=== PATIENT | male | born 1965 | race Caucasian/White ===

== ENCOUNTER 2020-08-20 08:41 | Observation (INO) | payer OTHER ==
[2020-08-20] MEDS ORDERED: SODIUM CHLORIDE 0.9% 1,000 ML IV STA (08:52)
--- NOTE | 2020-08-20 09:10 | ED ---
General Adult HPI - General Chief complaint: Syncope Stated complaint: syncope Time Seen by Provider: 08/20/20 08:43 Source: patient, EMS, RN notes reviewed Mode of arrival: EMS Limitations: no limitations - History of Present Illness Initial comments: This is a 55-year-old male presents emergency department via EMS with chief complaint of syncopal episode. Patient states that he was getting out of the vehicle yesterday and states that he passed out striking the right side of his head. Patient does complain of mild headache no blood thinners. Patient denies any focal weakness. No blurred vision. Patient states that he was making coffee table to walk to the bathroom and felt that using a pass out again. Patient states he is able to lower himself to the ground before he fell. Patient states she's never had any like this in the past. Denies any prior cardiac disease. Denies any abdominal complaints including nausea vomiting diarrhea. No fevers or chills any leg pain, leg swelling or leg cramping. - Related Data Home Medications Medication Instructions Recorded Confirmed No Known Home Medications 08/20/20 08/20/20 Allergies Allergy/AdvReac Type Severity Reaction Status Date / Time No Known Allergies Allergy Verified 08/20/20 10:03 Review of Systems ROS Statement: Those systems with pertinent positive or pertinent negative responses have been documented in the HPI. ROS Other: All systems not noted in ROS Statement are negative. Past Medical History Past Medical History: No Reported History History of Any Multi-Drug Resistant Organisms: None Reported Past Surgical History: Appendectomy Past Psychological History: No Psychological Hx Reported Smoking Status: Current every day smoker Past Alcohol Use History: Occasional Past Drug Use History: None Reported General Exam Limitations: no limitations General appearance: alert, in no apparent distress Head exam: Present: atraumatic, normocephalic, normal inspection Eye exam: Present: normal appearance, PERRL, EOMI. Absent: scleral icterus, conjunctival injection, periorbital swelling ENT exam: Present: normal exam, normal oropharynx, mucous membranes moist, TM's normal bilaterally Neck exam: Present: normal inspection, full ROM. Absent: tenderness, meningismus, lymphadenopathy Respiratory exam: Present: normal lung sounds bilaterally. Absent: respiratory distress, wheezes, rales, rhonchi, stridor Cardiovascular Exam: Present: regular rate, normal rhythm, normal heart sounds. Absent: systolic murmur, diastolic murmur, rubs, gallop, clicks Extremities exam: Present: normal inspection, full ROM, normal capillary refill. Absent: tenderness, pedal edema, joint swelling, calf tenderness Neurological exam: Present: alert, oriented X3, CN II-XII intact, reflexes n ormal. Absent: motor sensory deficit Skin exam: Present: warm, dry, intact, normal color. Absent: rash Course Vital Signs 08/20/20 08/20/20 08/20/20 08:46 09:00 09:02 Temperature 97.8 F Pulse Rate 93 Pulse Rate [ 93 95 Human Resources Benefits Manager ] Respiratory 18 18 18 Rate Blood Pressure 149/96 Blood Pressure 132/100 [Left Arm Sitting] Blood Pressure [Left Arm Standing] Blood Pressure 149/96 [Left Arm Supine] O2 Sat by Pulse 98 98 97 Oximetry 08/20/20 08/20/20 09:05 09:30 Temperature Pulse Rate 97 Pulse Rate [ 80 Human Resources Benefits Manager ] Respiratory 18 18 Rate Blood Pressure 102/77 Blood Pressure [Left Arm Sitting] Blood Pressure 132/97 [Left Arm Standing] Blood Pressure [Left Arm Supine] O2 Sat by Pulse 98 99 Oximetry - Reevaluation(s) Reevaluation #1: 08/20/20 10:28 Is: The room secondary to patient having urticaria. Patient did have diffuse ur ticaria was normal straight distress patient was given site Medrol Benadryl and Pepcid symptoms improved EKG Findings - EKG Comments: EKG Findings:: EKG performed at 9:02 normal sinus rhythm right bundle noted, rate of 75 AR 162 QRS 142 QT/QTC 414/462 - EKG Results: EKG: interpreted by MINDI Medical Decision Making - Medical Decision Making 55-year-old male presented for syncopal episode. Patient had multiple episodes of syncope, near syncope with diaphoresis. Patient will be admitted for cardiology evaluation. - Lab Data Result diagrams: 08/20/20 08:59 08/20/20 08:59 Lab Results 08/20/20 08/20/20 08/20/20 Range/Units 08:59 08:59 08:59 WBC 11.0 H (3.8-10.6) k/uL RBC 4.70 (4.30-5.90) m/uL Hgb 15.6 (13.0-17.5) gm/dL Hct 46.3 (39.0-53.0) % MCV 98.5 (80.0-100.0) fL MCH 33.2 (25.0-35.0) pg MCHC 33.7 (31.0-37.0) g/dL RDW 12.9 (11.5-15.5) % Plt Count 269 (150-450) k/uL MPV 7.5 Neutrophils % 91 % Lymphocytes % 6 % Monocytes % 2 % Eosinophils % 1 % Basophils % 0 % Neutrophils # 9.9 H (1.3-7.7) k/uL Lymphocytes # 0.7 L (1.0-4.8) k/uL Monocytes # 0.2 (0-1.0) k/uL Eosinophils # 0.1 (0-0.7) k/uL Basophils # 0.0 (0-0.2) k/uL PT 10.1 (9.0-12.0) sec INR 0.9 (<1.2) APTT 22.1 (22.0-30.0) sec Sodium 138 (137-145) mmol/L Potassium 4.4 (3.5-5.1) mmol/L Chloride 106 (98-107) mmol/L Carbon Dioxide 22 (22-30) mmol/L Anion Gap 10 mmol/L BUN 8 L (9-20) mg/dL Creatinine 0.78 (0.66-1.25) mg/dL Est GFR (CKD-EPI)AfAm >90 (>60 ml/min/1.73 sqM) Est GFR (CKD-EPI)NonAf >90 (>60 ml/min/1.73 sqM) Glucose 111 H (74-99) mg/dL Calcium 8.7 (8.4-10.2) mg/dL Magnesium 2.0 (1.6-2.3) mg/dL Total Bilirubin 0.9 (0.2-1.3) mg/dL AST 30 (17-59) U/L ALT 17 (4-49) U/L Alkaline Phosphatase 61 (38-126) U/L Troponin I (0.000-0.034) ng/mL Total Protein 7.5 (6.3-8.2) g/dL Albumin 4.3 (3.5-5.0) g/dL 08/20/20 Range/Units 08:59 WBC (3.8-10.6) k/uL RBC (4.30-5.90) m/uL Hgb (13.0-17.5) gm/dL Hct (39.0-53.0) % MCV (80.0-100.0) fL MCH (25.0-35.0) pg MCHC (31.0-37.0) g/dL RDW (11.5-15.5) % Plt Count (150-450) k/uL MPV Neutrophils % % Lymphocytes % % Monocytes % % Eosinophils % % Basophils % % Neutrophils # (1.3-7.7) k/uL Lymphocytes # (1.0-4.8) k/uL Monocytes # (0-1.0) k/uL Eosinophils # (0-0.7) k/uL Basophils # (0-0.2) k/uL PT (9.0-12.0) sec INR (<1.2) APTT (22.0-30.0) sec Sodium (137-145) mmol/L Potassium (3.5-5.1) mmol/L Chloride (98-107) mmol/L Carbon Dioxide (22-30) mmol/L Anion Gap mmol/L BUN (9-20) mg/dL Creatinine (0.66-1.25) mg/dL Est GFR (CKD-EPI)AfAm (>60 ml/min/1.73 sqM) Est GFR (CKD-EPI)NonAf (>60 ml/min/1.73 sqM) Glucose (74-99) mg/dL Calcium (8.4-10.2) mg/dL Magnesium (1.6-2.3) mg/dL Total Bilirubin (0.2-1.3) mg/dL AST (17-59) U/L ALT (4-49) U/L Alkaline Phosphatase (38-126) U/L Troponin I <0.012 (0.000-0.034) ng/mL Total Protein (6.3-8.2) g/dL Albumin (3.5-5.0) g/dL Disposition Clinical Impression: Syncopal episodes, Allergic reaction Disposition: ADMITTED IP TO THIS HOSP Condition: Fair Referrals: Karla Fajardo MD [Primary Care Provider] - 1-2 days
[2020-08-20 09:11] LABS: Basophils % (A) 0 %; Eosinophils # (A) 0.1 k/uL (0-0.7); Eosinophils % (A) 1 %; HCT 46.3 % (39.0-53.0); HGB 15.6 gm/dL (13.0-17.5); Lymphocytes # (A) 0.7 k/uL (1.0-4.8); Lymphocytes % (A) 6 %; MCH 33.2 pg (25.0-35.0); MCHC 33.7 g/dL (31.0-37.0); MCV 98.5 fL (80.0-100.0); Mean Platelet Volume 7.5; Monocytes # (A) 0.2 k/uL (0-1.0); Monocytes % (A) 2 %; Neutrophils # (A) 9.9 k/uL (1.3-7.7); Neutrophils % (A) 91 %; Platelet Count 269 k/uL (150-450); RDW 12.9 % (11.5-15.5)
[2020-08-20 09:20] LABS: ALT 17 U/L (4-49); AST 30 U/L (17-59); African American GFR (CKD) >90 (>60 ml/min/1.73 sqM); Albumin 4.3 g/dL (3.5-5.0); Alkaline Phosphatase 61 U/L (38-126); Anion Gap 10 mmol/L; Blood Urea Nitrogen 8 mg/dL (9-20); Calcium 8.7 mg/dL (8.4-10.2); Carbon Dioxide 22 mmol/L (22-30); Chloride 106 mmol/L (98-107); Glucose 111 mg/dL (74-99); Non-African American GFR(CKD) >90 (>60 ml/min/1.73 sqM); Potassium 4.4 mmol/L (3.5-5.1); Sodium 138 mmol/L (137-145); Total Bilirubin 0.9 mg/dL (0.2-1.3); Total Protein 7.5 g/dL (6.3-8.2)
[2020-08-20 09:22] LABS: INR 0.9 (<1.2); Partial Thromboplastin Time 22.1 sec (22.0-30.0); Prothrombin Time 10.1 sec (9.0-12.0)
--- NOTE | 2020-08-20 09:23 | XR ---
EXAMINATION TYPE: XR chest 2V DATE OF EXAM: 08/20/2020 COMPARISON: NONE HISTORY: Syncope and weakness. TECHNIQUE: Frontal and lateral views of the chest are obtained. FINDINGS: There is chronic parenchymal changes without suspicious focal air space opacity, pleural e ffusion, or pneumothorax seen. The cardiac silhouette size is within normal limits. The osseous st ructures are intact. Overlying EKG leads. IMPRESSION: No acute cardiopulmonary process.
--- NOTE | 2020-08-20 09:27 | CT ---
EXAMINATION TYPE: CT brain rita rogers con DATE OF EXAM: 08/20/2020 COMPARISON: NONE HISTORY: syncopal episodes with Right sided orbital injury, headache and neck pain. CT DLP: 1408.2 mGycm. Automated Exposure Control for Dose Reduction was Utilized. TECHNIQUE: CT scan of the head and cervical spine are performed without contrast. FINDINGS: There is no acute intracranial hemorrhage or midline shift identified. Mild ventricular and sulcal prominence. Auguste-white matter differentiation maintained. The calvarium is intact. Mild to mo derate mucosal thickening right greater than left inferior maxillary sinuses. Moderate patchy opacifi cation of ethmoid sinuses bilaterally. Globes are intact bilaterally. Soft tissue density consistent with cerumen though present in bilateral external auditory canals right greater than left. Cervical spine is visualized in its entirety from C1 through upper thoracic levels and demonstrates l evoconvex scoliotic curvature centered upper thoracic spine without evidence of acute fracture or dis location. Prevertebral soft tissue appears within normal limits. The C1-C2 articulation is within n ormal limits on the coronal images. Vertebral body heights and disc space heights are maintained. Mi [id number] calcified plaque bilateral carotid bulb level left greater than right. Lung apices miryam w no pneumothorax. Thyroid gland within normal limits. Spinal canal preserved. IMPRESSION: 1. There is no acute fracture or dislocation evident in the cervical spine. 2. No acute intracranial hemorrhage or midline shift is seen.
--- NOTE | 2020-08-20 09:30 | XR ---
EXAMINATION TYPE: XR hand complete LT DATE OF EXAM: 08/20/2020 CLINICAL HISTORY: Pain. TECHNIQUE: Frontal, lateral and oblique images of the left hand are obtained. COMPARISON: None. FINDINGS: There is no acute fracture/dislocation evident in the left hand. Mild narrowing scattered throughout the PIP and DIP joints of the phalanges. Relative sparing of the MCP joints. No significa nt spurring. The overlying soft tissue appears unremarkable. IMPRESSION: As above.
[2020-08-20] MEDS ORDERED: methylPREDNISolone SOD SUCCI 125 MG/2 ML VIAL IV STA (09:35)
[2020-08-20] MEDS ORDERED: diphenhydrAMINE 50 MG/ML 1 ML VIAL IVP STA (09:35)
[2020-08-20] MEDS ORDERED: FAMOTIDINE 20 MG/2 ML VIAL IV STA (09:35)
[2020-08-20] MEDS ORDERED: NALOXONE 0.4 MG/ML 1 ML VIAL IV PRN (10:30)
[2020-08-20] MEDS ORDERED: ACETAMINOPHEN TAB 325 MG TAB PO PRN (10:30)
[2020-08-20] MEDS ORDERED: NICOTINE 21MG/24HR PATCH TRANSDERM STA (10:37)
[2020-08-20] MEDS ORDERED: LORazepam 2 MG/ML INJ IV PRN ×3 (10:37)
[2020-08-20] MEDS: SODIUM CHLORIDE 0.9% 1,000 ML IV SCH (10:48)
[2020-08-20 11:05] LABS: Appearance,Urine Clear (Clear); Bacteria,Urine Rare /hpf; Bilirubin,Urine Negative (Negative); Blood,Urine Negative (Negative); Color,Urine Yellow; Glucose,Urine (UA) Trace (Negative); Hyaline Casts,Urine 81 /lpf (0-2); Ketones,Urine Negative (Negative); Leukocyte Esterase,Urine Negative (Negative); Mucus,Urine Few /hpf; Nitrite,Urine Negative (Negative); Protein,Urine 2+ (Negative); RBC,Urine 1 /hpf (0-5); Specific Gravity,Urine 1.014 (1.001-1.035); Squamous Epithelial Cell,Urine <1 /hpf (0-4); Urobilinogen,Urine <2.0 mg/dL (<2.0); WBC,Urine 6 /hpf (0-5)
--- NOTE | 2020-08-20 15:50 | P.HPIM ---
History of Present Illness H&P Date: 08/20/20 Felix Cook, is a 55-year-old male who presented to [facility] emergency room with a chief complaint of 2 syncopal episodes patient states that yesterday he was coming home with his son when he passed out on the driveway and fell to the ground and hit the right side of his head, his son went into the house and then came back out to look for him and found him laying on the floor unconscious, patient stated that home he woke up this morning and had coffee subsequence the he felt very faint and was able to lower himself to the floor and he passed out again at that point his called EMS and patient was brought into emergency room. Patient was evaluated in the emergency room his vital exam on presentation revealed a temperature of 97.8 pulse 93 respiration 18 blood pressure 149/96 pulse ox 98% on room air, his white blood count was 11.0 hemoglobin 15.6 platelet count 269 coronary virus PCR was negative. EKG done in the emergency room revealed normal sinus rhythm with right bundle branch block chest x-ray did not reveal any acute cardiopulmonary process computed tomography scan of the brain and the cervical spine was done in the emergency room and did not reveal a ny evidence of acute abnormality left hand x-ray did not reveal any abnormality. Patient was admitted to medical floor with telemetry for further evaluation and treatment. Patient denies any significant past medical history he denies any history of cardiac disease or any history of seizures, he is not on any home medications, he states that he drinks up to 12 beers per day he smokes one to one and a half packs of cigarettes per day. Past Medical History Past Medical History: No Reported History Additional Past Medical History / Comment(s): Pt states he drinks daily/8-12 beers a day and has had episodes of "sweats" when he was not drinking. History of Any Multi-Drug Resistant Organisms: None Reported Past Surgical History: Appendectomy Additional Past Surgical History / Comment(s): Colonoscopy Past Anesthesia/Blood Transfusion Reactions: No Reported Reaction Smoking Status: Current every day smoker - Past Family History Father Family Medical History: Cancer, Dementia, Myocardial Infarction ([place]), Vascular Disorder Additional Family Medical History / Comment(s): aortic aneurysm repair, [place] at age 72 yrs, bladder cancer. Mother Family Medical History: Cancer Additional Family Medical History / Comment(s): Lung cancer Medications and Allergies Home Medications Medication Instructions Recorded Confirmed Type No Known Home Medications 08/20/20 08/20/20 History Allergies Allergy/AdvReac Type Severity Reaction Status Date / Time No Known Allergies Allergy Verified 08/20/20 10:03 Physical Exam Vitals: Vital Signs Temp Pulse Pulse Resp BP BP BP 08/20/20 10:29 92 18 131/92 08/20/20 09:30 97 18 102/77 08/20/20 09:05 80 18 132/97 08/20/20 09:02 95 18 132/100 08/20/20 09:00 93 18 08/20/20 08:46 97.8 F 93 18 149/96 BP Pulse Ox 08/20/20 10:29 100 08/20/20 09:30 99 08/20/20 09:05 98 08/20/20 09:02 97 08/20/20 09:00 149/96 98 08/20/20 08:46 98 Intake and Output 08/19/20 08/20/20 08/20/20 22:59 06:59 14:59 Other: Weight 72.575 kg In general patient is alert and oriented 3 in no apparent distress HEENT head normocephalic bed is hematoma around the right eye Neck is supple no JVD no goiter no lymphadenopathy no carotid bruit Chest is clear to auscultation no crackles no wheezing Cardiac exam reveals regular heart sounds S1 and S2 no gallops no murmurs Abdomen is soft nontender no organomegaly with normal bowel sounds Extremity exam reveals no edema no cyanosis or clubbing Neurological examination reveals no gross focal deficit Results CBC & Chem 7: 08/20/20 08:59 08/20/20 08:59 Labs: Abnormal Lab Results - Last 24 Hours (Table) 08/20/20 08/20/20 08/20/20 Range/Units 08:59 08:59 08:59 WBC 11.0 H (3.8-10.6) k/uL Neutrophils # 9.9 H (1.3-7.7) k/uL Lymphocytes # 0.7 L (1.0-4.8) k/uL BUN 8 L (9-20) mg/dL Glucose 111 H (74-99) mg/dL Urine Protein 2+ H (Negative) Urine Glucose (UA) Trace H (Negative) Urine WBC 6 H (0-5) /hpf Urine Bacteria Rare H (None) /hpf Hyaline Casts 81 H (0-2) /lpf Urine Mucus Few H (None) /hpf Thrombosis Risk Factor Assmnt - Choose All That Apply Any of the Below Risk Factors Present?: Yes Each Factor Represents 1 point: Age 41-60 years Other Risk Factors: No Other congenital or acquired thrombophilia - If yes, enter type in comment: No Thrombosis Risk Factor Assessment Total Risk Factor Score: 1 Thrombosis Risk Factor Assessment Level: Low Risk Assessment and Plan Plan: 1. 2 syncopal episodes in the last 24 hours, will check echocardiogram and carotid Doppler, will monitor on telemetry to rule out any cardiac arrhythmia, cardiology consultation and neurology consultation are requested 2. Excessive alcohol use with early alcohol was drawn started on Ativan and thiamine 3. Underlying history of tobacco use Will monitor during this admission Patient was counseled in regard to smoking cessation and decreasing alcohol intake Recheck labs and follow-up in a.m.
--- NOTE | 2020-08-20 16:22 | US ---
EXAMINATION TYPE: US carotid duplex BILAT DATE OF EXAM: 08/20/2020 COMPARISON: NONE CLINICAL HISTORY: syncope. EXAM MEASUREMENTS: RIGHT: Peak Systolic Velocity (PSV) cm/sec ----- Right CCA: 98.7 ----- Right ICA: 72.6 ----- Right ECA: 96.9 ICA/CCA ratio: 0.7 RIGHT: End Diastole cm/sec ----- Right CCA: 21.7 ----- Right ICA: 10.0 ----- Right ECA: 14.1 LEFT: Peak Systolic Velocity (PSV) cm/sec ----- Left CCA: 98.4 ----- Left ICA: 82.7 ----- Left ECA: 145.7 ICA/CCA ratio: 0.8 LEFT: End Diastole cm/sec ----- Left CCA: 17.6 ----- Left ICA: 25.8 ----- Left ECA: 13.6 VERTEBRALS (direction of flow): Right Vertebral: Antegrade Left Vertebral: Antegrade Rhythm: Normal No significant stenosis seen. Elevated left ECA. . Auguste scale images show mild to moderate peripheral hyperechoic plaque in carotid bulb level bilateral ly greater at the left carotid bulb. Velocity measurements and ratios remain within normal limits in both internal carotid arteries. IMPRESSION: Moderate atherosclerotic change left greater than right without hemodynamically signific ant stenosis involving either internal carotid artery . Criteria for Assigning % of Stenosis / Diameter reduction (Estimation based on the indirect measurements of the internal carotid artery velocities (ICA PSV). 1. Normal (no stenosis)=ICA PSV < 125 cm/s: ratio < 2.0: ICA EDV<40 cm/s. 2. Less than 50% stenosis=ICA PSV < 125 cm/s: ratio < 2.0: ICA EDV<40 cm/s. 3. 50 to 69% stenosis=ICA PSV of 125 to 230 cm/s: ration 2.0 ? 4.0: ICA EDV 40-100 cm/s. 4. Greater than 70% stenosis to near occlusion= ICA PSV > 230 cm/s: ratio > 4.0: ICA EDV > 100 cm/s. 5. Near occlusion= ICA PSV velocities may be low or undetectable: variable ratio and ICA EDV. 6. Total occlusion=unable to detect flow.
[2020-08-20] MEDS: THIAMINE 100 MG TAB PO SCH (20:45)
[2020-08-21] MEDS: SODIUM CHLORIDE 0.9% 1,000 ML IV SCH ×2 (01:19→13:50)
[2020-08-21] MEDS: THIAMINE 100 MG TAB PO SCH ×2 (07:11→15:16)
[2020-08-21] MEDS: amLODIPine 5 MG TAB PO SCH (09:28)
[2020-08-21 10:21] LABS: Basophils # (A) 0.02 X 10*3/uL (0.00-0.10); Basophils % (A) 0.3 %; Eosinophils # (A) 0.04 X 10*3/uL (0.04-0.35); Eosinophils % (A) 0.5 %; HCT 40.5 % (39.6-50.0); HGB 13.7 g/dL (13.0-17.0); Lymphocytes # (A) 1.81 X 10*3/uL (0.90-5.00); Lymphocytes % (A) 23.5 %; MCH 33.4 pg (27.0-32.0); MCHC 33.8 g/dL (32.0-37.0); MCV 98.8 fL (80.0-97.0); Mean Platelet Volume 10.9 fL (9.5-12.2); Monocytes # (A) 0.86 X 10*3/uL (0.20-1.00); Monocytes % (A) 11.2 %; Neutrophils # (A) 4.93 X 10*3/uL (1.80-7.70); Neutrophils % (A) 64.1 %; Platelet Count 243 X 10*3/uL (140-440); RDW 13.1 % (11.5-14.5); WBC 7.69 X 10*3/uL (4.50-10.00)
[2020-08-21 10:33] LABS: African American GFR (CKD) 124.9 (60.0-200.0); Albumin 4.2 g/dL (3.80-4.90); Anion Gap 4.7 mmol/L (4.00-12.00); BUN/Creat Ratio 15.71 Ratio (12.00-20.00); Calcium 8.5 mg/dL (8.7-10.3); Carbon Dioxide 26.3 mmol/L (21.6-31.8); Globulin 2.1 g/dL (1.6-3.3); Non-African American GFR(CKD) 107.7 (60.0-200.0); Potassium 3.9 mmol/L (3.5-5.5); Total Bilirubin 1.1 mg/dL (0.3-1.2); Total Protein 6.3 g/dL (6.2-8.2)
--- NOTE | 2020-08-21 10:54 | P.CRDCN ---
History of Present Illness Consult date: 08/21/20 History of present illness: CHIEF COMPLAINT: Syncope HISTORY OF PRESENT ILLNESS: This is a 55-year-old male with a past medical history significant for daily alcohol use and nicotine dependence. Patient does not follow with a skin specialist. We have been asked to see the patient in consultation for syncope. Patient examined this morning at bedside. Patient states that 2 days ago he was bowling and felt in his usual state of health. He drove home and after he pulled into the driveway he got out of the car and apparently passed out in the driveway. He was found by his children. Patient states he does not know how long he was down for. Patient states he felt okay for the rest of the day. He states his morning he woke up and made coffee and then went to the bathroom and afterwards felt like he was about to pass out. He states he lowered himself to the ground and believes he passed out at that point. Patient denied any chest pain or pressure. Denies shortness of breath. Denies dizziness or lightheadedness. Denies nausea or vomiting. DIAGNOSTICS: EKG reveals sinus mechanism with right bundle branch block Chest xray no acute cardiopulmonary process Laboratory data: WBC 7.9. Hemoglobin 13.7. Platelet count 243. Sodium 137. Potassium 3.9. BUN 11. Creatinine 0.7. Magnesium 2.0. Troponin negative 1. Current home cardiac medications include none REVIEW OF SYSTEMS: At the time of my exam: CONSTITUTIONAL: Denies fever or chills. HEENT: Denies blurred vision, vision changes, or eye pain. Denies hemoptysis CARDIOVASCULAR: Denies chest pain, orthopnea, PND or palpitations RESPIRATORY: No shortness of breath. GASTROINTESTINAL: Denies abdominal pain. Denies nausea or vomiting. HEMATOLOGIC: Denies bleeding disorders. GENITOURINARY: Denies any blood in urine. SKIN: Denies pruitis. Denies rash. PHYSICAL EXAM: VITAL SIGNS: Reviewed. GENERAL: Well-developed in no acute distress. HEENT: Head is normocephalic. Patient with ecchymosis to right orbital region. Pupils are equal, round. Sclerae anicteric. Mucous membranes of the mouth are moist. Neck supple. No JVD or thyromegaly LUNGS: Respirations even and unlabored. Lungs essentially clear to auscultation bilaterally. HEART: Regular rate and rhythm. S1 and S2 heard. ABDOMEN: Soft. Nondistended. Nontender. EXTREMITIES: Normal range of motion. No clubbing or cyanosis. Peripheral pulses intact. No lower extremity edema NEUROLOGIC: Awake and alert. Oriented x 3. ASSESSMENT: Syncope, of unclear etiology Hypertension Alcohol abuse, patient drinks 8-12 beers daily Nicotine dependence, patient smokes 1.5 packs per day PLAN: Smoking cessation encouraged Alcohol abstinence recommended Nephrology has been consulted for evaluation. Await recommendations Orthostatic blood pressures obtained and reviewed Obtain lipid panel Obtain 2-D echo to assess cardiac structure and function Continue telemetry monitoring for any arrhythmias Begin Norvasc 5 mg daily. Monitor blood pressure Further recommendations pending patient's course Nurse practitioner note has been reviewed by physician. Signing provider agrees with the documented findings, assessment, and plan of care. Past Medical History Past Medical History: No Reported History Additional Past Medical History / Comment(s): Pt states he drinks daily/8-12 beers a day and has had episodes of "sweats" when he was not drinking. History of Any Multi-Drug Resistant Organisms: None Reported Past Surgical History: Appendectomy Additional Past Surgical History / Comment(s): Colonoscopy Past Anesthesia/Blood Transfusion Reactions: No Reported Reaction Smoking Status: Current every day smoker - Past Family History Father Family Medical History: Cancer, Dementia, Myocardial Infarction ([place]), Vascular Disorder Additional Family Medical History / Comment(s): aortic aneurysm repair, [place] at age 72 yrs, bladder cancer. Mother Family Medical History: Cancer Additional Family Medical History / Comment(s): Lung cancer Medications and Allergies Home Medications Medication Instructions Recorded Confirmed Type No Known Home Medications 08/20/20 08/20/20 History Allergies Allergy/AdvReac Type Severity Reaction Status Date / Time No Known Allergies Allergy Verified 08/20/20 10:03 Physical Exam Vitals: Vital Signs Temp Pulse Pulse Pulse Resp BP BP 08/21/20 07:13 98.1 F 78 16 169/86 08/21/20 01:50 98.2 F 68 72 67 17 157/86 176/91 08/20/20 19:30 16 08/20/20 19:20 98.5 F 83 83 16 142/80 08/20/20 14:00 97.1 F L 83 106 H 83 18 173/92 141/96 BP Pulse Ox 08/21/20 07:13 100 02/06/21 01:50 154/82 97 08/20/20 19:30 08/20/20 19:20 08/20/20 14:00 161/79 Intake and Output 08/20/20 08/21/20 08/21/20 22:59 06:59 14:59 Intake Total 960 Balance 960 Intake: Oral 960 Other: # Voids 1 1 Results 08/21/20 05:19 08/21/20 05:19 Cardiac Enzymes 08/21/20 Range/Units 05:19 AST 22 (14-35) U/L CBC 08/21/20 Range/Units 05:19 WBC 7.69 (4.50-10.00) X 10*3/uL RBC 4.10 L (4.40-5.60) X 10*6/uL Hgb 13.7 (13.0-17.0) g/dL Hct 40.5 (39.6-50.0) % Plt Count 243 (140-440) X 10*3/uL Comprehensive Metabolic Panel 08/21/20 Range/Units 05:19 Sodium 137 (135-145) mmol/L Potassium 3.9 (3.5-5.5) mmol/L Chloride 106 (96-109) mmol/L Carbon Dioxide 26.3 (21.6-31.8) mmol/L BUN 11.0 (9.0-27.0) mg/dL Creatinine 0.7 (0.6-1.5) mg/dL Glucose 103 (70-110) mg/dL Calcium 8.5 L (8.7-10.3) mg/dL AST 22 (14-35) U/L ALT 13 (10-49) U/L Alkaline Phosphatase 50 (41-126) U/L Total Protein 6.3 (6.2-8.2) g/dL Albumin 4.20 (3.80-4.90) g/dL Current Medications Generic Name Dose Route Start Last Admin Trade Name Freq PRN Reason Stop Dose Admin Acetaminophen 650 mg 08/20/20 10:30 Acetaminophen Tab 325 Mg Tab PO Q6HR PRN Mild Pain or Fever > 100.5 Amlodipine Besylate 5 mg 08/21/20 09:30 08/21/20 09:28 Amlodipine 5 Mg Tab PO 5 mg DAILY FUNMILAYO Administration Sodium Chloride 1,000 mls @ 75 mls/hr 08/20/20 10:30 08/21/20 01:19 Saline 0.9% IV 75 mls/hr .[id number] FUNMILAYO Administration Lorazepam 1 mg 08/20/20 10:37 Lorazepam 2 Mg/Ml Inj IV Q2HR PRN CIWA 8 or 9 Lorazepam 1 mg 08/20/20 10:37 Lorazepam 2 Mg/Ml Inj IV Q1HR PRN CIWA 10 to 15 Lorazepam 2 mg 08/20/20 10:37 Lorazepam 2 Mg/Ml Inj IV 08/22/20 10:37 Q10M PRN CIWA 16 or higher Naloxone HCl 0.2 mg 08/20/20 10:30 Naloxone 0.4 Mg/Ml 1 Ml Vial IV Q2M PRN Opioid Reversal Thiamine HCl 100 mg 08/20/20 17:30 08/21/20 07:11 Thiamine 100 Mg Tab PO 100 mg BID-W/MEALS FUNMILAYO Administration Intake and Output 08/20/20 08/21/20 08/21/20 22:59 06:59 14:59 Intake Total 960 Balance 960 Intake: Oral 960 Other: # Voids 1 1 08/21/20 05:19 08/21/20 05:19
--- NOTE | 2020-08-21 13:21 | P.CNNES ---
History of Present Illness Consult date: 08/21/20 Requesting physician: Samia Dorman Reason for Consult: episode of unresponsiveness History of Present Illness: This is a 55-year-old gentleman with medical history of daily alcohol use, nicotine dependence that presented to the emergency department on 08/20/2020 for syncopal episode. Patient stated about 2 days ago ( night) he was bowling at night and was feeling his usual self he drove home and then after he pulled in the driveway he got out of the car and apparently passed out in the driveway. He was found by his children and unknow duration of him being passed out for. He said that that he was notified by family members that he didn't have any jerking of the extremities. He said after the first episode he had some loose over the around the right eye. Patient denied of any tongue bites, urinary bowel incontinence. Patient denied of any auras prior to the episode. Denied of any chest pain, feeling dizzy or lightheaded headedness. He denied any visual disturbance prior to episode of feeling sweaty. He said that he's been drinking the same amounts and has not been going down on his alcohol use or at has not been going up. Denies of any fevers recently. Denies being on any medications. Then the next day which is Sunday morning patient stated that he woke up 6:30am, made his coffeee then he went to the bathroom and afterwards he felt like he was about to pass out. Upon asking him to further describe what was his feelings at that time he said she just felt off but denies feeling dizzy denies any neurological symptoms or visual disturbance. He denies feel having any chest pain. He is unsure if he felt lightheaded or not. But he's denied B going from a sitting to standing position and feeling lightheaded or dizzy. Then he stepped out of the bathroom and just the one on the floor but denies passing out but is not exactly sure. Again no urinary, bowel incontinence denies any jerking of the extremities that were was witnessed by the family. EMS was called as a result by his according to the patient. Patient drinks 8-12 beers daily and he smokes 1 1/2 PPD. And as stated above. Intravenous M same amounts every day he says sometimes he gets aching drinks 6 beers or up to 12 but at has not changed anything 20 for years as well as ease been smoking for years according to the patient. Patient denies any history of seizures in the past. Denies any family history of seizures. history he said he was a product of normal gestation vaginal and there is no complication. Workup in the hospital consisted of: Initial vital signs: Blood pressure of 149/96, heart rate of 93, temperature of 97.8 Fahrenheit oral, respiratory of 18 and pulse ox of 98 the percent at room air. Patient had orthostatic vitals and the blood pressure supine is 161/79 with a heart rate of 83; sitting is 173/92 with a heart rate of 83; standing is a blood pressure of 141/96 with a heart rate of 106. Then the patient had a repeated orthostatic with a supine being 154/82 and heart rate was 67; sitting is a blood pressure of 157/86 with a heart rate of 68 and standing is 176/91 with a heart rate of 72. CT of the head is reported as no acute intracranial hemorrhage or midline shift. Personally reviewed it and I will see any acute cyst last subacute or intraparenchymal hemorrhage. There is no significant encephalomalacia evident on the CT. CT cervical spine was reported as there is no acute fracture or dislocation evident in the cervical spine. EKG is reported as normal sinus rhythm. Right bundle branch block. Abnormal EKG. Carotid duplex was reported as moderate atherosclerotic change left greater than the right without hemodynamic significant stenosis involving either internal carotid artery. Initial serum glucose was 111. Review of Systems Review of system: The 12 point system was reviewed and apparent positive and ne gative per HPI. Past Medical History Past Medical History: No Reported History Additional Past Medical History / Comment(s): Pt states he drinks daily/8-12 beers a day and has had episodes of "sweats" when he was not drinking. History of Any Multi-Drug Resistant Organisms: None Reported Past Surgical History: Appendectomy Additional Past Surgical History / Comment(s): Colonoscopy Past Anesthesia/Blood Transfusion Reactions: No Reported Reaction Smoking Status: Current every day smoker - Past Family History Father Family Medical History: Cancer, Dementia, Myocardial Infarction ([place]), Vascular Disorder Additional Family Medical History / Comment(s): aortic aneurysm repair, [place] at age 72 yrs, bladder cancer. Mother Family Medical History: Cancer Additional Family Medical History / Comment(s): Lung cancer Medications and Allergies Home Medications Medication Instructions Recorded Confirmed Type No Known Home Medications 08/20/20 08/20/20 History Allergies Allergy/AdvReac Type Severity Reaction Status Date / Time No Known Allergies Allergy Verified 08/20/20 10:03 Physical Examination - Vital Signs Vital Signs: Vital Signs Temp Pulse Pulse Pulse Resp BP BP 08/21/20 07:13 98.1 F 78 16 169/86 08/21/20 01:50 98.2 F 68 72 67 17 157/86 176/91 08/20/20 19:30 16 08/20/20 19:20 98.5 F 83 83 16 142/80 08/20/20 14:00 97.1 F L 83 106 H 83 18 173/92 141/96 BP Pulse Ox 08/21/20 07:13 100 08/21/20 01:50 154/82 97 08/20/20 19:30 08/20/20 19:20 08/20/20 14:00 161/79 Intake and Output 08/20/20 08/21/20 08/21/20 22:59 06:59 14:59 Intake Total 960 Balance 960 Intake: Oral 960 Other: # Voids 1 1 GENERAL: The patient is lying in bed and is not in acute distress. HENT: Mild echymosis around the right eye with some redness over the right lateral aspect of eye. CHEST: The heart rate is regular rate rhythm. No murmurs to auscultation. No carotid bruit bilaterally. LUNG: Clear to auscultation bilaterally no wheezing noted throughout. Not labored breathing. ABDOMEN/GI: Bowel sounds present in all 4 quadrants. No tenderness to palpation throughout. NEUROLOGICAL: Higher mental function: The patient is awake, alert, oriented to self, place and time. Patient is following commands. No aphasia and no neglect. Cranial nerves: The pupils are round, equal and reactive to light and accommodation. Visual berry are full to confrontation throughout. Extraocular movement is intact no nystagmus is noted. Facial sensation is normal to touch throughout. The facial strength is normal throughout. Hearing is normal bilaterally to hand rub. Tongue is midline and moved [id number] without any difficulty. No dysarthria is noted. Shoulder shrug is normal bilaterally. Motor: Gait is normal with normal arm swings. The strength is 5 over 5 throughout. Normal tone and bulk. Cerebellum: Normal finger to nose bilaterally. Sensation: Sensation is normal to touch throughout. Reflexes (right/left): 2+ throughout. Plantars are downgoing bilaterally. Results Calcium is 8.7. AST is 30 and ALT 17. Urine analysis is negative for urinary tract infection. Serum alcohol level was less than 10 which is normal. Coronavirus PCR is not detected. Coagulation the study:PT 10.1, INR: 0.9, PTT 22.1. - Laboratory Findings CBC and BMP: 08/21/20 05:19 08/21/20 05:19 Abnormal Lab Findings: Abnormal Labs 08/20/20 08/20/20 08/20/20 08:59 08:59 08:59 WBC 11.0 H RBC MCV MCH Neutrophils # 9.9 H Lymphocytes # 0.7 L BUN 8 L Glucose 111 H Calcium Urine Protein 2+ H Urine Glucose (UA) Trace H Urine WBC 6 H Urine Bacteria Rare H Hyaline Casts 81 H Urine Mucus Few H 08/21/20 08/21/20 05:19 05:19 WBC RBC 4.10 L MCV 98.8 H MCH 33.4 H Neutrophils # Lymphocytes # BUN Glucose Calcium 8.5 L Urine Protein Urine Glucose (UA) Urine WBC Urine Bacteria Hyaline Casts Urine Mucus Assessment and Plan Assessment: This is a 55-year-old gentleman that presented to the emergency department on 08/20/2020 for two syncopal episode (on on 08/19/20 at night and one next morning). He denies of any urinary, bowel and cause or jerk in of day any of t he extremities. He denies of any tongue bite. Denies any history of seizures. He drinks 6 to 12 beers daily. Syncope. Unclear etiology. Does not seem seizure but cannot rule it out. Hypertension Alcohol use and drinks about 6-12 beers daily Nicotine dependence and smokes 1-1/2 packs per day Plan: CT of the head is reported as no acute intracranial hemorrhage or midline shift. Personally reviewed it and I will see any acute cyst last subacute or intraparenchymal hemorrhage. There is no significant encephalomalacia evident on the CT. CT cervical spine was reported as there is no acute fracture or dislocation evident in the cervical spine. Carotid duplex was reported as moderate atherosclerotic change left greater than the right without hemodynamic significant stenosis involving either internal carotid artery. I ordered a routine EEG and I will not start the patient on an antiepileptic drug unless there is a epileptiform discharges or seizure on EEG. MRI the brain seizure protocol to be done as an outpatient especially since the patient does not want to stay here over the weekend and that MRI would not be done over the weekend since they are off tomorrow as well as no availability is today. Recommend repeating the orthostatics. I ordered the vitamin B12, folate and TSH. I also ordered hemoglobin A1c Regional aorta is in patients with the uncontrolled diabetes they have autonomic dysfunction. Cardiology team is on board and 2-D echo was ordered and is pending. Lipid panel is also ordered by the cardiology team is pending The patient is currently on thiamine 100 mg 1 tablet twice a day and that's to be continued. Patient is on CIWA protocol and we will defer the management to the primary team. Plan was discussed with the patient's nurse. Thank you for the consultation. Jai Zambrano MD Neuro-Hospitalist Time with Patient: Greater than 30
--- NOTE | 2020-08-21 14:44 | P.PN ---
Subjective Progress Note Date: 08/21/20 Felix Cook, is a 55-year-old male who presented to [facility] emergency room with a chief complaint of 2 syncopal episodes patient states that yesterday he was coming home with his son when he passed out on the driveway and fell to the ground and hit the right side of his head, his son went into the house and then came back out to look for him and found him laying on the floor unconscious, patient stated that home he woke up this morning and had coffee subsequence the he felt very faint and was able to lower himself to the floor and he passed out again at that point his called EMS and patient was brought into emergency room. Patient was evaluated in the emergency room his vital exam on presentation revealed a temperature of 97.8 pulse 93 respiration 18 blood pressure 149/96 pulse ox 98% on room air, his white blood count was 11.0 hemoglobin 15.6 platelet count 269 coronary virus PCR was negative. EKG done in the emergency room revealed normal sinus rhythm with right bundle branch block chest x-ray did not reveal any acute cardiopulmonary process computed tomography scan of the brain and the cervical spine was done in the emergency room and did not reveal any evidence of acute abnormality left hand x-ray did not reveal any abnormality. Patient was admitted to medical floor with telemetry for further evaluation and treatment. Patient denies any significant past medical history he denies any history of cardiac disease or any history of seizures, he is not on any home medications, he states that he drinks up to 12 beers per day he smokes one to one and a half packs of cigarettes per day. On 08/21/2020 patient was seen and examined on the medical floor he is alert and oriented 3 in no distress, he underwent an echocardiogram today results are still pending, he underwent EEG today results are still pending At this time we are awaiting results on echocardiogram and EEG and clearance from cardiology and neurology for discharge. Otherwise continue telemetry monitoring continue with current medications will follow. Objective - Vital Signs Vital signs: Vital Signs Temp 97.9 F 08/21/20 13:17 Pulse 79 08/21/20 13:46 Resp 18 08/21/20 13:17 BP 148/80 08/21/20 13:46 Pulse Ox 98 08/21/20 13:17 Intake & Output 0208/21/20 08/21/20 18:59 06:59 18:59 Intake Total 960 480 Balance 960 480 Weight 72.575 kg Intake: Oral 960 480 Other: # Voids 1 - Exam In general patient is alert and oriented 3 in no apparent distress HEENT head normocephalic bed is hematoma around the right eye Neck is supple no JVD no goiter no lymphadenopathy no carotid bruit Chest is clear to auscultation no crackles no wheezing Cardiac exam reveals regular heart sounds S1 and S2 no gallops no murmurs Abdomen is soft nontender no organomegaly with normal bowel sounds Extremity exam reveals no edema no cyanosis or clubbing Neurological examination reveals no gross focal deficit - Labs CBC & Chem 7: 08/21/20 05:19 08/21/20 05:19 Labs: Abnormal Lab Results - Last 24 Hours (Table) 08/21/20 08/21/20 Range/Units 05:19 05:19 RBC 4.10 L (4.40-5.60) X 10*6/uL MCV 98.8 H (80.0-97.0) fL MCH 33.4 H (27.0-32.0) pg Calcium 8.5 L (8.7-10.3) mg/dL Assessment and Plan Plan: 1. 2 syncopal episodes in the last 24 hours, will check echocardiogram and carotid Doppler, will monitor on telemetry to rule out any cardiac arrhythmia, cardiology consultation and neurology consultation are requested 2. Excessive alcohol use with early alcohol was drawn started on Ativan and thiamine 3. Underlying history of tobacco use Will monitor during this admission Patient was counseled in regard to smoking cessation and decreasing alcohol intake Recheck labs and follow-up in a.m.
--- NOTE | 2020-08-21 14:46 | EEG ---
ELECTROENCEPHALOGRAM REPORT DATE OF SERVICE: 08/21/2020 This is a 55-year-old gentleman that presented to the emergency department with a 2 syncopal episodes. This video EEG is obtained to evaluate for seizure and epileptiform activity. RELEVANT MEDICATION: The patient is not on any antiepileptic drugs. EEG TYPE: A routine 21 channel EEG is performed with video using the 10/20 electrode placement system. DESCRIPTION: Wakefulness is only obtained. During wakefulness, there is a posterior dominant rhythm of low to moderate voltage, reactive, well modulated, of 11-11.5 hertz activity. There is no physiological stage 2 sleep. There is no focal slowing. INTERICTAL AND ICTAL: None. ACTIVATION PROCEDURES: Hyperventilation is performed but did not evoke a posterior driving response over bilateral hemisphere. CLINICAL INTERPRETATION: This is a normal routine EEG. There are no focal slowing, epileptiform discharges or seizures during the study. Clinical correlation is recommended. PAMELA / TAHIRA: [id number] / MTDD
[2020-08-21 15:00] LABS: Urine Alcohol Negative (Negative); Urine Barbiturate Negative (Negative); Urine Cocaine Negative (Negative); Urine Methadone Negative (Negative); Urine Opiates Negative (Negative); Urine Phencyclidine Negative (Negative)
[2020-08-21 16:36] LABS: Chol/HDL Ratio 3.28; LDL Cholesterol,Calculated 118.8 mg/dL (0.0-131.0); VLDL Calculation 20.2 mg/dL (5.00-40.00)
[2020-08-21 19:20] LABS: Hemoglobin A1C 5.8 % (4.0-6.0)
[2020-08-22 02:17] VITALS: TEMP 97.7
[2020-08-22] MEDS: SODIUM CHLORIDE 0.9% 1,000 ML IV SCH (07:03)
[2020-08-22 07:32] VITALS: BP 151/92; PULSE 73; RESP 19
[2020-08-22] MEDS: THIAMINE 100 MG TAB PO SCH (07:37)
[2020-08-22] MEDS: amLODIPine 5 MG TAB PO SCH (08:05)
[2020-08-22] MEDS ORDERED: ASPIRIN 81 MG PO SCH (09:15)
--- NOTE | 2020-08-22 10:57 | P.PN ---
Subjective Progress Note Date: 08/22/20 Patient was seen at bedside and he feels he is back to baseline since his been the hospital. Denies of any further episodes of loss of consciousness. Denies of any new neurological complaints. He had repeated orthostatic vitals yesterday and was negative. Supine blood pressure is 148/80 with a heart rate of 76; sitting his blood pressure of 162/84 with a heart rate of 79 and standing is blood pressure of 161/87 with a heart rate of 84. Objective - Vital Signs Vital signs: Vital Signs Temp 97.7 F 08/22/20 07:00 Pulse 73 08/22/20 07:00 Resp 19 08/22/20 07:00 BP 151/92 08/22/20 07:00 Pulse Ox 98 08/22/20 07:00 Intake & Output 08/21/20 08/22/20 08/22/20 18:59 06:59 18:59 Intake Total 720 480 Balance 720 480 Intake: Oral 720 480 Other: # Voids 3 2 # Bowel Movements 1 - Exam GENERAL: The patient is lying in bed and is not in acute distress. NEUROLOGICAL: Higher mental function: The patient is awake, alert, oriented to self, place and time. Patient is following commands. No aphasia and no neglect. Cranial nerves: The pupils are round, equal and reactive to light and accommodation. Visual berry are full to confrontation throughout. Extraocular movement is intact no nystagmus is noted. Facial sensation is normal to touch throughout. The facial strength is normal throughout. Hearing is normal bilaterally to hand rub. Tongue is midline and moved [id number] without any difficulty. No dysarthria is noted. Shoulder shrug is normal bilaterally. Motor: Gait is normal with normal arm swings. The strength is 5 over 5 throughout. Normal tone and bulk. Cerebellum: Normal finger to nose bilaterally. Sensation: Sensation is normal to touch throughout. Reflexes (right/left): 2+ throughout. Plantars are downgoing bilaterally. - Labs CBC & Chem 7: 08/21/20 05:19 08/21/20 05:19 Labs: Abnormal Lab Results - Last 24 Hours (Table) 08/21/20 08/21/20 08/21/20 Range/Units 05:19 05:19 05:19 RBC 4.10 L (4.40-5.60) X 10*6/uL MCV 98.8 H (80.0-97.0) fL MCH 33.4 H (27.0-32.0) pg Calcium 8.5 L (8.7-10.3) mg/dL HDL Cholesterol 61.0 H (40.0-60.0) mg/dL Assessment and Plan Assessment: This is a 55-year-old gentleman that presented to the emergency department on 08/20/2020 for two syncopal episode (on on 08/19/20 at night and one next morning). He denies of any urinary, bowel and cause or jerk in of day any of the extremities. He denies of any tongue bite. Denies any history of seizures. He drinks 6 to 12 beers daily. Syncope. Unclear etiology. Does not seem like seizure but cannot rule it out. Hypertension Alcohol use and drinks about 6-12 beers daily Nicotine dependence and smokes 1-1/2 packs per day Plan: CT of the head is reported as no acute intracranial hemorrhage or midline shift. Personally reviewed it and I will see any acute cyst last subacute or intraparenchymal hemorrhage. There is no significant encephalomalacia evident on the CT. CT cervical spine was reported as there is no acute fracture or dislocation evident in the cervical spine. Carotid duplex was reported as moderate atherosclerotic change left greater than the right without hemodynamic significant stenosis involving either internal carotid artery. As a result of the carotid duplex I started the patient on low dose aspirin 81 mg as well as Lipitor 20 mg (not higher dose of statin since he has history of heavy alcohol use). EEG on 08/21/2020: Is normal. There are no focal slowing, epileptiform discharges or seizure on the EEG. Recommend MRI the brain seizure protocol. There are no concrete technician for today. If patient will be here another day then can get it done tomorrow. He wants to be discharged and wants to get it as outpatient. I ordered an event monitor (and cardiology will work on him getting event monitor). Vitamin B12: 480 (normal). RBC Folate: pending. TSH: 3.83 (normal). Hemoglobin A1c: 5.8. Cardiology team is on board and 2-D echo was ordered and is pending. Lipid panel: Triglyceride of 101, cholesterol 200, LDL is 118 and HDL 61. The patient is currently on thiamine 100 mg 1 tablet twice a day and that's to be continued. Patient is on CIWA protocol and we will defer the management to the primary team. The patient was counseled on alcohol and tobacco cessation. Patient was notified to avoid driving for 6 month until no loss of conscioussness (for that peroid) per [place]. And to avoid the [place], avoid heavy machinery and to the avoid swimming unassisted Patient needs to follow-up with neurologist (within 1-2 weeks) and recommend demonstrator sewing techniques follow-up as outpatient. There are no further work-up. Plan was discussed with the patient's nurse and cardiology team. Jai Zambrano MD Neuro-Hospitalist Time with Patient: Less than 30
--- NOTE | 2020-08-22 11:36 | P.DS ---
Providers Date of admission: 08/20/20 10:43 Expected date of discharge: 08/22/20 Attending physician: Samia Dorman Consults: 08/20/20 10:31 Consult Physician Urgent Consulting Provider: Live Fried Consult Reason/Comments: Syncope Do you want consulting provider notified?: Yes 08/20/20 15:37 Consult Physician Routine Consulting Provider: Weston Ross Consult Reason/Comments: syncope Do you want consulting provider notified?: Yes Primary care physician: Karla Fajardo Hospital Course: Discharge diagnosis 1. 2 syncopal episodes in the last 24 hours, will check echocardiogram and carotid Doppler, will monitor on telemetry to rule out any cardiac arrhythmia, cardiology consultation and neurology consultation are requested 2. Excessive alcohol use with early alcohol was drawn started on Ativan and thiamine 3. Underlying history of tobacco use 4. Hyperlipidemia. Patient started on statin 5. Essential hypertension. Patient started on Norvasc Patient was evaluated by cardiology and neurology services. Cleared for discharge. Carotid Doppler negative. EEG negative 2-D echo taken per cardiology. Results pending. Outpatient event monitor recommended per neurology services Outpatient MRI also recommended per neurology services Hospital course Felix Cook, is a 55-year-old male who presented to [facility] emergency room with a chief complaint of 2 syncopal episodes patient states that yesterday he was coming home with his son when he passed out on the driveway and fell to the ground and hit the right side of his head, his son went into the house and then came back out to look for him and found him laying on the floor unconscious, patient stated that home he woke up this morning and had coffee subsequence the he felt very faint and was able to lower himself to the floor and he passed out again at that point his called EMS and patient was brought into emergency room. Patient was evaluated in the emergency room his vital exam on presentation revealed a temperature of 97.8 pulse 93 respiration 18 blood pressure 149/96 pulse ox 98% on room air, his white blood count was 11.0 hemoglobin 15.6 platelet count 269 coronary virus PCR was negative. EKG done in the emergency room revealed normal sinus rhythm with right bundle branch block chest x-ray did not reveal any acute cardiopulmonary process computed tomography scan of the brain and the cervical spine was done in the emergency room and did not reveal any evidence of acute abnormality left hand x-ray did not reveal any abnormality. Patient was admitted to medical floor with telemetry for further evaluation and treatment. Patient denies any significant past medical history he denies any history of cardiac disease or any history of seizures, he is not on any home medications, he states that he drinks up to 12 beers per day he smokes one to one and a half packs of cigarettes per day. On 08/21/2020 patient was seen and examined on the medical floor he is alert and oriented 3 in no distress, he underwent an echocardiogram today results are still pending, he underwent EEG today results are still pending At this time we are awaiting results on echocardiogram and EEG and clearance from cardiology and neurology for discharge. Otherwise continue telemetry monitoring continue with current medications will follow. On 08/22/2020 patient alert and oriented 3. Patient expresses that he is very eager to go home. EEG and carotid Doppler negative. 2-D echo was completed results still pending. Did discuss with cardiology services patient may be discharged home with pending 2-D echo result. Per neurology service is recommending event monitor outpatient to be arranged per cardiology services. Also recommending MRI to be completed outpatient per neurology services. Patient to follow-up with neurology services outpatient. Patient also to follow up with cardiology services. Patient started on Norvasc for essential hypertension. Patient follow-up with PCP for further management. Patient again educated on pain and alcohol cessation. Patient Condition at Discharge: Stable Plan - Discharge Summary Discharge Rx Participant: No New Discharge Prescriptions: New Atorvastatin [Lipitor] 20 mg PO HS 30 Days #30 tab amLODIPine [Norvasc] 5 mg PO DAILY 30 Days #30 tab Thiamine [Vitamin B-1] 100 mg PO BID-W/MEALS 30 Days #60 tab Discharge Medication List Atorvastatin [Lipitor] 20 mg PO HS 30 Days #30 tab 08/22/20 [Rx] Thiamine [Vitamin B-1] 100 mg PO BID-W/MEALS 30 Days #60 tab 08/22/20 [Rx] amLODIPine [Norvasc] 5 mg PO DAILY 30 Days #30 tab 08/22/20 [Rx] Follow up Appointment(s)/Referral(s): Carlos Amin MD [STAFF PHYSICIAN] - 1 Week Karla Fajardo MD [Primary Care Provider] - 1-2 days Kovar,Foreign, DO [STAFF PHYSICIAN] - 1 Week Activity/Diet/Wound Care/Special Instructions: Activity as tolerated Diet heart healthy Discharge Disposition: HOME SELF-CARE
--- NOTE | 2020-08-22 12:55 | P.PN ---
Subjective Progress Note Date: 08/22/20 CHIEF COMPLAINT: Syncope HISTORY OF PRESENT ILLNESS: 08/21/2020 This is a 55-year-old male with a past medical history significant for daily alcohol use and nicotine dependence. Patient does not follow with a flow manager. We have been asked to see the patient in consultation for syncope. Patient examined this morning at bedside. Patient states that 2 days ago he was bowling and felt in his usual state of health. He drove home and after he pulled into the driveway he got out of the car and apparently passed out in the driveway. He was found by his children. Patient states he does not know how long he was down for. Patient states he felt okay for the rest of the day. He states his morning he woke up and made coffee and then went to the bathroom and afterwards felt like he was about to pass out. He states he lowered himself to the ground and believes he passed out at that point. Patient denied any chest pain or pressure. Denies shortness of breath. Denies dizziness or lightheadedness. Denies nausea or vomiting. 08/22/2020 Patient examined this morning at the bedside. Patient denies chest pain or pressure. Denies shortness of breath. Denies dizziness or lightheadedness. Patient has been ambulate in the hallways and is anxious to be discharged home today. PHYSICAL EXAM: VITAL SIGNS: Reviewed. GENERAL: Well-developed in no acute distress. HEENT: Head is normocephalic. Patient with ecchymosis to right orbital region. Pupils are equal, round. Sclerae anicteric. Mucous membranes of the mouth are moist. Neck supple. No JVD or thyromegaly LUNGS: Respirations even and unlabored. Lungs essentially clear to auscultation bilaterally. HEART: Regular rate and rhythm. S1 and S2 heard. ABDOMEN: Soft. Nondistended. Nontender. EXTREMITIES: Normal range of motion. No clubbing or cyanosis. Peripheral pulses intact. No lower extremity edema NEUROLOGIC: Awake and alert. Oriented x 3. ASSESSMENT: Syncope, of unclear etiology Hypertension Alcohol abuse, patient drinks 8-12 beers daily Nicotine dependence, patient smokes 1.5 packs per day PLAN: Patient may be discharged home today from a cardiac standpoint. Continue Norvasc 5 mg daily. Patient is to follow-up in the office with Dr. Amin. Nurse practitioner note has been reviewed by physician. Signing provider agrees with the documented findings, assessment, and plan of care. Objective - Vital Signs Vital signs: Vital Signs Temp 97.7 F 08/22/20 07:00 Pulse 73 08/22/20 07:00 Resp 19 08/22/20 07:00 BP 151/92 08/22/20 07:00 Pulse Ox 98 08/22/20 07:00 Intake & Output 08/21/20 08/22/20 08/22/20 18:59 06:59 18:59 Intake Total 720 480 Balance 720 480 Intake: Oral 720 480 Other: # Voids 3 2 # Bowel Movements 1 - Labs CBC & Chem 7: 08/21/20 05:19 08/21/20 05:19 Labs: Abnormal Lab Results - Last 24 Hours (Table) 08/21/20 Range/Units 05:19 HDL Cholesterol 61.0 H (40.0-60.0) mg/dL
--- NOTE | 2020-08-22 15:39 | ECHOF ---
Referral Reason:LV function, syncope MEASUREMENTS -------- HEIGHT: 177.8 cm WEIGHT: 72.6 kg BP: 149/96 IVSd: 1.0 cm (0.6 - 1.1) LVIDd: 4.2 cm (3.9 - 5.3) LVPWd: 1.2 cm (0.6 - 1.1) IVSs: 1.7 cm LVIDs: 2.4 cm LVPWs: 1.6 cm LA Diam: 3.4 cm (2.7 - 3.8) RVIDd: 3.1 cm (< 3.3) LAESV Index (A-L): 17.03 ml/m Ao Diam: 3.5 cm (2.0 - 3.7) AV Cusp: 2.0 cm (1.5 - 2.6) EPSS: 0.4 cm MV E Wilmer: 0.62 m/s MV DecT: 195 ms MV A Wilmer: 0.72 m/s MV E/A Ratio: 0.86 MV EF SLOPE: 71.80 mm/s (70 - 150) MV EXCURSION: 18.16 mm (> 18.000) FINDINGS -------- Sinus rhythm. This was a technically good study. The left ventricular size is normal. There is borderline concentric left ventricular hypertrophy. Overall left ventricular systolic function is normal with, an EF between 60 - 65 %. The right ventricle is normal in size and function. Normal LA size by volume 22+/-6 ml/m2. The right atrium is normal in size. Interatrial and interventricular septum intact. The aortic valve is trileaflet and appears structurally normal. The mitral valve is normal. The tricuspid valve appears structurally normal. There is no pulmonic regurgitation present. The aortic root size is normal. Normal inferior vena cava with normal inspiratory collapse consistent with estimated right atrial pre ssure of 5 mmHg. There is no pericardial effusion. CONCLUSIONS -------- 1. The left ventricular size is normal. 2. There is borderline concentric left ventricular hypertrophy. 3. Overall left ventricular systolic function is normal with, an EF between 60 - 65 %. 4. There is no pericardial effusion. SPEECH CLINICIAN: SHAMEKA Salmon
[2020-08-22] MEDS ORDERED: ATORVASTATIN 20 MG TAB PO SCH (21:00)
== END 2020-08-22 12:23 | disposition home or self-care (01) ==
LOC: EC 08:41 → 6NMEDSUR 10:43
PROVIDERS: ADMIT Internal Medicine; ATTEND Internal Medicine
DX: R55 Syncope and collapse (principal); R61 Generalized hyperhidrosis; I45.10 Unspecified right bundle-branch block; F10.139 Alcohol abuse with withdrawal, unspecified; E78.5 Hyperlipidemia, unspecified; I10 Essential (primary) hypertension; L50.0 Allergic urticaria; F17.210 Nicotine dependence, cigarettes, uncomplicated; Z90.49 Acquired absence of other specified parts of digestive tract; W19.XXXA Unspecified fall, initial encounter; Y92.008 Other place in unspecified non-institutional (private) residence as the place of occurrence of the external cause; Z81.8 Family history of other mental and behavioral disorders; Z82.49 Family history of ischemic heart disease and other diseases of the circulatory system; Z80.1 Family history of malignant neoplasm of trachea, bronchus and lung; Z80.52 Family history of malignant neoplasm of bladder; Z20.822 Contact with and (suspected) exposure to COVID-19
CPT/HCPCS: 96361 ×2; 93005 ×2; 96374; 96375; 99285; 36415; 95816; 93306; 82747; 80061; 80053 ×2; 84443; 82607; 83735; 84484; 85025 ×2; 85610; 85730; 81001; 80306; 80320; 83036; 87635; 73130; 71046; 93880; 72125; 70450; G0378 ×3; S4990; J1200; J2930

== ENCOUNTER → 2020-09-14 | Outpatient (CLI) | payer OTHER | END | disposition hospice, home (50) | LOC: LABWHC1 16:40 | PROVIDERS: ATTEND Family Medicine | DX: U07.1 COVID-19 (principal) | CPT/HCPCS: U0003; C9803; U0005 ==

== ENCOUNTER → 2023-05-09 | Outpatient (CLI) | payer OTHER ==
[2023-05-10 02:59] LABS: Carbon Dioxide 23.7 mmol/L (21.6-31.8); Chloride 99 mmol/L (96-109); Potassium 4.2 mmol/L (3.5-5.5); Sodium 137 mmol/L (135-145)
[2023-05-10 04:19] LABS: Basophils # (A) 0.04 X 10*3/uL (0.00-0.10); Basophils % (A) 0.4 %; Eosinophils # (A) 0.23 X 10*3/uL (0.04-0.35); Eosinophils % (A) 2.5 %; HCT 40.7 % (39.6-50.0); HGB 13.7 d/dL (13.0-17.0); Lymphocytes # (A) 3.03 X 10*3/uL (0.90-5.00); Lymphocytes % (A) 33.5 %; MCH 32.9 pg (27.0-32.0); MCHC 33.7 d/dL (32.0-37.0); MCV 97.6 FL (80.0-97.0); Mean Platelet Volume 10.2 FL (9.5-12.2); Monocytes # (A) 0.61 X 10*3/uL (0.20-1.00); Monocytes % (A) 6.7 %; NRBC Per 100 WBC 0 X 10*3/uL (0.00-0.01); Neutrophils % (A) 56.6 %; Platelet Count 275 X 10*3/uL (140-440); RBC 4.17 X 10*6/uL (4.40-5.60); WBC 9.04 X 10*3/uL (4.50-10.00)
== END | disposition home or self-care (01) ==
LOC: LABPAT 16:01
PROVIDERS: ATTEND Internal Medicine Interventional Cardiology
DX: Z01.812 Encounter for preprocedural laboratory examination (principal); I70.213 Atherosclerosis of native arteries of extremities with intermittent claudication, bilateral legs
CPT/HCPCS: 80051; 82565; 84520; 85025

== ENCOUNTER 2023-06-20 06:33 | Day surgery (SDC) | payer OTHER ==
[~2023-06-20 06:33] MED LIST: ALPRAZolam 0.25 MG TAB PO PRN; ASPIRIN 325 MG TAB PO PRN; SODIUM CHLORIDE 0.9% 1,000 ML in EMPTY BAG 1 BAG IV ONE
[2023-06-20] MEDS ORDERED: CLOPIDOGREL 75 MG TAB ONE ×2 (07:14→10:31)
[2023-06-20 07:18] LABS: Basophils % (A) 0 %; Eosinophils # (A) 0.2 k/uL (0-0.7); Eosinophils % (A) 2 %; HCT 46.9 % (39.0-53.0); HGB 15.4 gm/dL (13.0-17.5); Lymphocytes # (A) 1.8 k/uL (1.0-4.8); Lymphocytes % (A) 16 %; MCH 32.8 pg (25.0-35.0); MCHC 32.9 g/dL (31.0-37.0); MCV 99.8 fL (80.0-100.0); Mean Platelet Volume 7.3; Monocytes # (A) 0.6 k/uL (0-1.0); Monocytes % (A) 5 %; Neutrophils # (A) 8.5 k/uL (1.3-7.7); Neutrophils % (A) 75 %; Platelet Count 282 k/uL (150-450); RDW 13.1 % (11.5-15.5); WBC 11.3 k/uL (3.8-10.6)
[2023-06-20 07:30] LABS: African American GFR (CKD) >90 (>60 ml/min/1.73 sqM); Anion Gap 12 mmol/L; Blood Urea Nitrogen 12 mg/dL (9-20); Calcium 9.5 mg/dL (8.4-10.2); Carbon Dioxide 28 mmol/L (22-30); Chloride 102 mmol/L (98-107); Glucose 91 mg/dL (74-99); Non-African American GFR(CKD) >90 (>60 ml/min/1.73 sqM); Potassium 4.2 mmol/L (3.5-5.1); Sodium 142 mmol/L (137-145)
[2023-06-20] MEDS ORDERED: HEPARIN SODIUM 1,000 UN/ML (10ML VL) ONE (09:21)
[2023-06-20] MEDS ORDERED: LIDOCAINE 1% INJ 10MG/ML (20 ML MDV) ONE (09:26)
[2023-06-20] MEDS ORDERED: fentaNYL (PF) 50 MCG/ML 2 ML AMP IVP ONE (09:31)
[2023-06-20] MEDS ORDERED: MIDAZOLAM 2 MG/2 ML VIAL IVP ONE (09:31)
[2023-06-20] MEDS ORDERED: fentaNYL (PF) 50 MCG/ML 2 ML AMP ONE (09:33)
[2023-06-20] MEDS ORDERED: LIDOCAINE 1% INJ 10MG/ML (20 ML MDV) SQ ONE (09:33)
[2023-06-20] MEDS: HEPARIN SODIUM 1,000 UN/ML (10ML VL) IV ONE ×2 (09:38→10:02)
[2023-06-20] MEDS ORDERED: niCARdipine 25 MG/10 ML VIAL ONE (10:24)
[2023-06-20] MEDS ORDERED: CLOPIDOGREL 75 MG TAB PO ONE (10:32)
[2023-06-20] MEDS ORDERED: niCARdipine Syringe (1,000 mcg/10 mL) INTRAARTER ONE (10:33)
[2023-06-20] MEDS ORDERED: IOPAMIDOL-370 100ML BTL INJ ONE (10:43)
[2023-06-20] MEDS ORDERED: SODIUM CHLORIDE 0.9% 1,000 ML IV SCH (11:00)
--- NOTE | 2023-06-20 11:15 | IR ---
EXAMINATION TYPE: IR architectural project captain femoral popliteal DATE OF EXAM: 06/20/2023 COMPARISON: NONE HISTORY: Fluoroscopy time. Fluoroscopy was provided to the referring clinician.
--- NOTE | 2023-06-20 12:19 | P.PCN ---
Date of Procedure: 06/20/23 Operative Findings: PERCUTANEOUS PERIPHERAL INTERVENTION Performing physician Live Fried M.D. Procedure performed 1. Successful balloon angioplasty of the right SFA 2. Adjunctive use of lithotripsy balloon and intravascular ultrasound and orbital atherectomy 3. Right lower extremity angiogram and left common femoral artery angiogram and ultrasound guided access of the left common femoral artery Indication Right lower extremity intermittent claudication in this gentleman who is known to have critical right SFA Approach Left common femoral are Complications None Level of sedation Moderate with a sedation time of 80 minutes Procedure description After obtaining an informed consent the patient was brought to the cardiac laborer cutting tool. The left common femoral artery was cannulated using micropuncture technique under ultrasound guidance a micropuncture wire passed easily then I placed a 6-Hungarian 70 cm sheath at the left common femoral artery. Subsequently the right SFA was selected using 035 stiff Glidewire with a backup support of 5- Hungarian rim catheter and then the rim catheter was advanced over the wire to the right common femoral artery then the sheath was advanced over the wire and the catheter to the proximal right common femoral artery. Subsequently right lower extremity angiogram was performed and showed heavily calcified right SFA with a flow-limiting lesion involving the distal portion and also critical/subtotally occluded ostial right SFA. I did intravascular ultrasound which showed a diameter around 6 mm with a calcified SFA which was extremely calcified. After that I did decide to do the orbital atherectomy. I crossed the lesion using 014 wire and subsequently the intravascular ultrasound was performed and then I exchanged my wire into the atherectomy wire using 018 catheter. After that I did orbital atherectomy of the right SFA. Then I did balloon angioplasty using lithotripsy balloon which was 6 mm x 60 mm balloon. The following angiogram showed adequate angiographic results and I decided to end with drug-coated balloon. I did drug-coated balloon distally using 6 mm x 1 50 mm balloon and by the ostium is a 6 mm x 60 mm balloon. Final angiogram showed excellent angiographic results and the procedure was completed was no complication. After that I did exchange my long sheath into short sheath using 035 stiff Glidewire before I did left femoral angiogram. The procedure was completed was no complication Postprocedure management 1. Dual antiplatelet therapy 2. Aggressive cholesterol control 3. Risk factors modification 4. Follow-up with the patient
[2023-06-20] MEDS ORDERED: ATORVASTATIN 40 MG TAB PO SCH (21:00)
[2023-06-20] MEDS ORDERED: ASPIRIN 81 MG PO SCH (21:00)
[2023-06-21 07:47] VITALS: BP 112/72; PULSE 76; RESP 16; TEMP 98.1
[2023-06-21] MEDS: NICOTINE 21MG/24HR PATCH TRANSDERM SCH ×2 (08:37→08:38)
[2023-06-21] MEDS ORDERED: CLOPIDOGREL 75 MG TAB PO SCH (09:00)
--- NOTE | 2023-06-21 11:02 | P.DS ---
Providers Attending physician: Live Fried Primary care physician: [facility] Course: This is a 58-year-old male who underwent successful balloon angioplasty of the right SFA with Dr. Fried. Patient is doing well postprocedure with no palpitations noted. Patient examined this morning at the bedside. He reports improvement in his discomfort of his right lower extremity. He denies any chest pain or shortness of breath. Vital signs are stable. The patient was deemed stable for discharge home today from a cardiac standpoint. The patient is to continue dual antiplatelet therapy with aspirin and Plavix along with statin therapy Please see EMR for further hospital course details Discharge diagnosis Critical right SFA, status post balloon angioplasty of right SFA Nurse practitioner note has been reviewed by physician. Signing provider agrees with the documented findings, assessment, and plan of care. Plan - Discharge Summary Discharge Rx Participant: No New Discharge Prescriptions: Continue Clopidogrel [Plavix] 75 mg PO DAILY #90 tab Atorvastatin [Lipitor] 40 mg PO HS Aspirin 81 mg PO HS Discharge Medication List Atorvastatin [Lipitor] 40 mg PO HS 04/10/23 [History] Aspirin 81 mg PO HS 05/14/23 [History] Clopidogrel [Plavix] 75 mg PO DAILY #90 tab 05/16/23 [Rx] Follow up Appointment(s)/Referral(s): Live Fried MD [STAFF PHYSICIAN] - 1 Week (APPOINTMENT MADE ON June @ 9:45AM ) Patient Instructions/Handouts: Peripheral Vascular Disease (DC), Peripheral Vascular Angioplasty (GEN) Activity/Diet/Wound Care/Special Instructions: *NO LIFTING, PUSHING, OR PULLING ANYTHING OVER 5 POUNDS FOR 5 DAYS *NO DRIVING FOR 3 DAYS *YOU CAN REMOVE YOUR DRESSING TOMORROW BUT DO NOT SUBMERSE YOUR PUNCTURE SITE IN WATER FOR A FEW DAYS TO PREVENT INFECTION - SO NO TUB BATHS, POOLS, HOT TUBS, DISHES...ETC *ANY SIGNS OF BLEEDING (HARDNESS, SWELLING, OR EXCESSIVE BRUISING) HOLD DIRECT PRESSURE ON YOUR PUNCTURE SITE AND COME TO THE NEAREST EMERGENCY ROOM TO GET YOUR PUNCTURE SITE LOOKED AT - DO NOT DRIVE YOURSELF - EITHER CALL EMS OR HAVE SOMEONE DRIVE YOU! Discharge Disposition: HOME SELF-CARE
== END 2023-06-21 10:05 | disposition home or self-care (01) ==
LOC: CATHCVL 06:33 → 6NMEDSUR 10:36 → CATHCVL 06-21 10:05
PROVIDERS: ATTEND Internal Medicine Interventional Cardiology
DX: I73.9 Peripheral vascular disease, unspecified (principal); I10 Essential (primary) hypertension; E78.5 Hyperlipidemia, unspecified; F17.210 Nicotine dependence, cigarettes, uncomplicated; Z82.49 Family history of ischemic heart disease and other diseases of the circulatory system; Z79.899 Other long term (current) drug therapy
CPT/HCPCS: 76937; 37252; 80048; 85025; C1894 ×2; C1769 ×5; C1714; C1753; C2623 ×2; C1760; C9766; C1725; J2250; J2001; J3010; J1644; Q9967